=== PATIENT | male | born 1970 | race Caucasian/White ===

== ENCOUNTER → 2019-06-14 10:05 | Outpatient (POV) | payer MEDICARE, SELFPAY ==
[2019-06-14 10:17] VITALS: BP 130/84; PULSE 81; RESP 18; O2SAT 98; BMI 25.9
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
== END ==
PROVIDERS: PCP Family Medicine; Visit Provider Clinical Nurse Specialist Family Health
DX: M47.816 Spondylosis without myelopathy or radiculopathy, lumbar region (principal)
CPT/HCPCS: 99202

== ENCOUNTER 2021-08-19 19:53 | Emergency (ER) | payer MEDICARE, SELFPAY ==
[2021-08-19 20:00] VITALS: BP 116/75; PULSE 91; RESP 20; TEMP 38.7; O2SAT 98; BMI 26.6
--- NOTE | 2021-08-19 20:18 | HMH.EDUTC ---
[facility] [place] [facility] [place] Clinical Impression: Bronchitis Disposition: Home, Self-Care Condition on Discharge: Good Instructions: DI for Acute Bronchitis, DI for Fever (Symptom) -- Adult, DI for COVID-19 (Suspected or Confirmed ) Additional Instructions: ? Start antibiotic today. Be sure to complete entire prescription even if feeling better ? Monitor temp. Tylenol every 4 hours as needed and / or ibuprofen every 6 hours as needed ( As long as your primary care physician has told you that it ok to take both. For fever/aches/pains ER if no less than 101 despite Tylenol or Motrin ? Humidifier/vaporizer or hot steamy shower ? Inhaler every 4-6 hours as needed like we discussed. If unsure how to use it, ask pharmacist to demonstrate how. Should help open airways and improve cough, wheezing, and shortness of breath ? Mucinex during the day for your cough and cough suppressant only at night. Be sure to drink lots of water. Insurance may not cover a prescriptions for mucinex. Might be cheaper to get 400mg tablets and take 2 tablet in the morning, mid-day and evening with lots of water. *Promethazine DM cough syrup will cause drowsiness. Use only at night. No driving, operating machinery or caring for small children after taking it *Tessalon Perles will not cause drowsiness but use at bedtime to help stop cough so that you may get some rest. *Start steroid today. Helps with inflammation therefore, cough and wheezing. Follow directions on the package. Reviewed side effects. Patient reports taking them before. Follow up IMMEDIATELY for new or worsening of symptoms OR no noticeable improvement over the next 48-72 hours. 911 immediately for any life threatening symptoms such as chest pain or difficulty breathing Prescriptions: Benzonatate [Benzonatate 100mg cap] 100 mg PO Q8HP PRN #15 cap PRN Reason: Cough Transmission Status: Received by [id number] methylPREDNISolone [Medrol 4mg tab] 4 mg PO DIRECTED #21 tab Transmission Status: [id number] Azithromycin [Z-Brandon 250mg Tab] 250 mg PO DIRECTED #6 tab Transmission Status[facility] Ondansetron [Zofran 4mg ODT] 4 mg PO TIDP PRN #6 tab PRN Reason: Nausea Transmission Status: Received by [facility] Referrals: Provider,Referral, MD [Primary Care Provider] - As needed Forms: Work/School Release Time of Disposition: 20:43 Medical Decision Making - Elio Inquiry Pt receiving controlled substance: No Elio was queried for this patient: No Vital Signs: 08/19/21 20:00 08/19/21 20:39 Temperature 101.7 F H 101.7 F H Temperature Source Oral Pulse Rate 91 H Pulse Rate [Right Brachial] 91 H Respiratory Rate 20 20 Blood Pressure 116/75 Blood Pressure [Right Arm] 116/75 Blood Pressure Mean [Right Arm] 88 Blood Pressure Source [Right Arm] Automatic Cuff Blood Pressure Position [Right Arm] Sitting 02 Sat by Pulse Oximetry 98 Oxygen Delivery Method Room Air - Lab Data Lab results reviewed: Yes: I reviewed the patient's lab results. Lab Results 08/19/21 20:10: Influenza Type A Ag Negative, Influenza Type B Ag Negative Orders (Tests/Meds): ED MEDICATIONS Discontinued Medications Generic Name Dose Route Start Last Admin Trade Name Freq PRN Reason Stop Dose Admin Ibuprofen 800 mg 08/19/21 20:16 08/19/21 20:19 Ibuprofen 400 Mg Tablet PO 08/19/21 20:17 800 mg ONCE ONE Administration Ondansetron HCl 4 mg 08/19/21 20:31 08/19/21 20:35 Ondansetron 4mg Odt SL 08/19/21 20:32 4 mg ONCE ONE Administration ORDERS Category Date Time Status Covid-19 Nasal PCR ([facility]) Routine Lab 08/19/21 20:05 Received [facility] [place] [facility] [place] HPI - General Stated complaint: CHILLS,bland,nAUSA, BODY ACHES Time Seen by Provider: 08/19/21 20:18 Mode of Arrival: Ambulatory Source of Information: Patient Limitations: No Limitations Description of Symptoms (Recalled from Triage Doc. by RN): PATIENT C/O CHI
[2021-08-19 20:23] LABS: UTC Influenza A Antigen Negative (Negative); UTC Influenza B Antigen Negative (Negative)
[2021-08-19 20:39] VITALS: BP 116/75; PULSE 91; RESP 20; TEMP 38.7; O2SAT 98
== END 2021-08-19 20:45 | disposition home or self-care (01) ==
PROVIDERS: Emergency Provider Nurse Practitioner
DX: U07.1 COVID-19 (principal); J20.9 Acute bronchitis, unspecified; F17.210 Nicotine dependence, cigarettes, uncomplicated
CPT/HCPCS: G0463; 87804; 99202; C9803; U0003; U0005

== ENCOUNTER 2021-11-06 14:20 | Emergency (ER) | payer MEDICARE, SELFPAY ==
--- NOTE | 2021-11-06 14:20 | ECG_ITS ---
APPROVED REPORT Exam: Resting ECG HR:66 bpm ECG Measurements Heart Rate 66 AXES VT 118 P 42 QRSd 92 QRS 42 QT 356 T 40 QTc 369 Conclusion SINUS RHYTHM WITH SHORT VT INTERVAL BORDERLINE ECG UNCONFIRMED REPORT Electronically signed by : Mj Stuart MD 11/08/2021 14:52:57
[2021-11-06 14:22] VITALS: BP 132/108; PULSE 65; RESP 16; TEMP 36.9; O2SAT 96; BMI 25.5
--- NOTE | 2021-11-06 14:24 | XR_ITS ---
FINAL REPORT CLINICAL HISTORY: chest pain FINDINGS: SINGLE VIEW CHEST. The heart is normal in size. The mediastinum is unremarkable. The lungs are clear. There is no pneumothorax. IMPRESSION: No acute process. Reviewed, Interpreted and Dictated by Lyndon Brand III, MD Transcribed by Deana Ye Authenticated by Lyndon Brand III, MD on 11/06/2021 03:28:35 PM [facility]
[2021-11-06 14:47] LABS: Basophils # 0.1 K/mm3 (0-0.2); Basophils % 1.3 % (0.1-2.0); Eosinophils # 0.5 K/mm3 (0.0-0.4); Eosinophils % 5.2 % (0.1-12.0); Hematocrit 45.6 % (42.0-52.0); Hemoglobin 15.9 g/dL (14.1-18.0); Lymphocytes # 2.3 K/mm3 (0.7-4.5); Lymphocytes % 26.6 % (10-50); Mean Corpuscular HGB Conc 34.8 g/dL (31.8-35.4); Mean Corpuscular Hemoglobin 32.7 pg (27.0-31.2); Mean Platelet Volume 9.2 fl (7.4-10.4); Monocytes # 0.5 K/mm3 (0.1-1.0); Monocytes % 6.1 % (1.7-9.3); Neutrophils # 5.3 K/mm3 (1.8-7.8); Neutrophils % 60.8 % (37.0-80.0); Platelet Count 261 K/mm3 (142-424); Red Blood Count 4.86 M/mm3 (4.60-6.20); White Blood Count 8.8 K/mm3 (4.8-10.8)
[2021-11-06 14:49] LABS: Chloride 104 mmol/L (98-107); Sodium 138 mmol/L (136-145)
[2021-11-06 14:50] LABS: Potassium 4.4 mmoL/L (3.5-5.1)
[2021-11-06 14:52] LABS: Blood Urea Nitrogen 10 mg/dl (9-20); Creatinine Clearance Estimated 100 mL/min (50-200); Estimated Glomerular Filt Rate 89 ml/min (>60); GFR (African American) 107 ML/MIN (>60)
[2021-11-06 14:53] LABS: Anion Gap 12.4 mEq/L (5-15); Calcium 8.5 mg/dl (8.4-10.2); Carbon Dioxide 26 mmol/L (22.0-30.0); Glucose 109 mg/dl (74-100)
[2021-11-06 15:00] VITALS: BP 135/77; PULSE 58; RESP 16; O2SAT 96
[2021-11-06 15:07] LABS: Troponin I < 0.01 ng/ml (0.00-0.034)
--- NOTE | 2021-11-06 15:13 | HMH.EDCP ---
ED Disposition Clinical Impression: Chest pain Disposition: Home, Self-Care Condition on Discharge: Good Instructions: DI for Atypical Chest Pain Additional Instructions: Please follow up with your primary care physician in 2-3 days for further management. You have also been referred to cardiology for outpatient management., Please return for difficulty breathing, chest pain, symptoms that reoccur or any other concerns. Referrals: Provider,Referral, [Primary Care Provider] - Rima Barajas APRN [Nurse Practitioner] - - Critical Care Critical Care Time: No Attestation: On 11/06/21, the high probability of a clinically significant, sudden or life threatening deterioration of the following system(s) required my full and direct attention, intervention and personal management. The time I documented below is in addition to time spent performing reported procedures but includes the following listed in this critical care notation. Medical Decision Making - Medical Records Medical records reviewed: Yes: I reviewed the patient's medical records. - Elio Inquiry Pt receiving controlled substance: No Vital Signs: 11/06/21 14:22 11/06/21 15:00 11/06/21 15:30 Temperature 98.4 F Temperature Source Oral Pulse Rate 58 L 60 Pulse Rate [Radial] 65 Respiratory Rate 16 16 16 Blood Pressure 135/77 113/70 Blood Pressure [Right Arm] 132/108 H Blood Pressure Mean 102 91 Blood Pressure Mean [Right Arm] 116 Blood Pressure Position Blood Pressure Position [Right Arm] Sitting 02 Sat by Pulse Oximetry 96 96 95 Oxygen Delivery Method Room Air 11/06/21 17:09 Temperature 98 F Temperature Source Oral Pulse Rate 68 Pulse Rate [Radial] Respiratory Rate 16 Blood Pressure 147/74 H Blood Pressure [Right Arm] Blood Pressure Mean Blood Pressure Mean [Right Arm] Blood Pressure Position Sitting Blood Pressure Position [Right Arm] 02 Sat by Pulse Oximetry Oxygen Delivery Method Room Air - Lab Data Lab results reviewed: Yes: I reviewed the patient's lab results. Lab Results 11/06/21 14:25: WBC 8.8, RBC 4.86, Hgb 15.9, Hct 45.6, MCV 94.0, MCH 32.7 H, MCHC 34.8, RDW 14.0, Plt Count 261, MPV 9.2, Neut % (Auto) 60.8, Lymph % (Auto) 26.6, Frontier % (Auto) 6.1, Eos % (Auto) 5.2, Baso % (Auto) 1.3, Neut # (Auto) 5.3, Lymph # (Auto) 2.3, Frontier # (Auto) 0.5, Eos # (Auto) 0.5 H, Baso # (Auto) 0.1 11/06/21 14:25: Sodium 138, Potassium 4.4, Chloride 104, Carbon Dioxide 26, Anion Gap 12.4, BUN 10, Creatinine 0.90, Estimated Creat Clear 100, Estimated GFR 89, Est GFR ( Amer) 107, Glucose 109 H, Calcium 8.5, Troponin I < 0.01 Result diagrams: 11/06/21 14:25 11/06/21 14:25 Orders (Tests/Meds): ORDERS Category Date Time Status Troponin I Q3H Lab 11/06/21 17:30 Ordered Medical Decision Narrative: Mr. Grayson is a 51 yo male w/ no significant PMH who presents to the ED for chest pain for 1 month, which is currently resolved. Patient is afebrile and hemodynamically stable on arrival, non toxic appearing. Physical exam no focal neurological deficits on exam. No sensory or motor changes currently. Low suspicion for DVT/PE given current clinical picture will not investigate further. Well PE score low risk 0. Bedside ECG shows normal sinus rhythm no evidence of acute ischemic changes. Basic labs, Trop, Bedside CXR are obtained for further evaluation results are non actionable. Patient is provided referral to cardiology given ongoing symptoms. Patient discharged in stable condition and informed to return if symptoms reoccur, worsen, difficulty breathing or any other concerns. Chest Pain HPI - General Chief Complaint: Chest Pain Stated Complaint: chest pain Time Seen by Provider: 11/06/21 14:30 Mode of Arrival: Ambulatory Source of Information: Patient Limitations: No Limitations Description of Symptoms (Recalled from ER Triage Doc. by RN): to ed per pvt car with c/o intermittent, sharp, pressure type chest chata
[2021-11-06 15:30] VITALS: BP 113/70; PULSE 60; RESP 16; O2SAT 95
[2021-11-06 17:09] VITALS: BP 147/74; PULSE 68; RESP 16; TEMP 36.6; O2SAT 98
== END 2021-11-06 17:10 | disposition home or self-care (01) ==
PROVIDERS: Emergency Provider Student in an Organized Health Care Education/Training Program
DX: R07.2 Precordial pain (principal); R20.2 Paresthesia of skin; F17.210 Nicotine dependence, cigarettes, uncomplicated; Z79.52 Long term (current) use of systemic steroids; Z79.899 Other long term (current) drug therapy
CPT/HCPCS: 71045; 80048; 84484; 85025; 93005; 99285

== ENCOUNTER 2022-04-03 17:48 | Emergency (ER) | payer MEDICARE, SELFPAY ==
--- NOTE | 2022-04-03 17:46 | ECG_ITS ---
APPROVED REPORT Exam: Resting ECG HR:75 bpm ECG Measurements Heart Rate 75 AXES IL 117 P 40 QRSd 93 QRS 29 QT 370 T 49 QTc 400 Conclusion SINUS RHYTHM WITH SHORT IL INTERVAL BORDERLINE ECG UNCONFIRMED REPORT Electronically signed by : Mj Stuart MD 04/04/2022 17:09:22
[2022-04-03 17:48] VITALS: BP 160/92; PULSE 72; RESP 16; TEMP 37.1; O2SAT 98; BMI 26.6
[2022-04-03 17:55] VITALS: PULSE 70
--- NOTE | 2022-04-03 17:58 | XR_ITS ---
PROCEDURE INFORMATION: Exam: XR Chest Exam date and time: 04/03/2022 6:17 PM Age: 51 years old Clinical indication: Pain; Chest pressure; Additional info: Chest pain TECHNIQUE: Imaging protocol: Radiologic exam of the chest. Views: 1 view. Portable AP exam 6:18 p.m. COMPARISON: CR XR CHEST PORTABLE 11/06/2021 2:28 PM FINDINGS: Tubes, catheters and devices: Overlying director of cardiac cath lab electrodes. Lungs: No acute pulmonary findings. No pulmonary consolidation. Lung volumes within normal limits. Pulmonary vessels do not appear congested. Pleural spaces: Unremarkable. No significant pleural effusion. No pneumothorax. Heart/Mediastinum: Unremarkable. No cardiomegaly. Bones/joints: There is no evidence of acute fracture. Other findings: Overlying external artifacts from clothing and a necklace. IMPRESSION: No acute findings.
[2022-04-03 18:00] VITALS: BP 132/70; PULSE 73; RESP 18; O2SAT 100
[2022-04-03 18:10] LABS: Alanine Aminotransferase 35 U/L (12-78); Albumin Level 4.6 g/dl (3.5-5.0); Alkaline Phosphatase 84 U/L (38-126); Anion Gap 12.8 mEq/L (5-15); Aspartate Amino Transferase 49 U/L (17-59); Bilirubin,Direct 0.4 mg/dl (0.0-0.4); Bilirubin,Indirect 0.4 mg/dL (0.0-0.9); Bilirubin,Total 0.8 mg/dl (0.2-1.3); Bilirubin,Unconjugated 0.4 mg/dL (0.0-1.1); Blood Urea Nitrogen 9 mg/dl (9-20); Carbon Dioxide 33 mmol/L (22.0-30.0); Chloride 100 mmol/L (98-107); Creatinine Clearance Estimated 94 mL/min (50-200); Estimated Glomerular Filt Rate 78 ml/min (>60); GFR (African American) 95 ML/MIN (>60); Glucose 68 mg/dl (74-100); Lipase 175 U/L (23-300); Potassium 3.8 mmoL/L (3.5-5.1); Sodium 142 mmol/L (136-145); Total Protein,Serum 7.7 g/dl (6.3-8.2)
[2022-04-03 18:24] LABS: Troponin I < 0.01 ng/ml (0.00-0.034)
[2022-04-03 18:30] VITALS: BP 133/72; PULSE 58; RESP 18; O2SAT 98
[2022-04-03 18:34] LABS: Basophils # 0.1 K/mm3 (0-0.2); Basophils % 1.5 % (0.1-2.0); Eosinophils # 0.7 K/mm3 (0.0-0.4); Eosinophils % 7.4 % (0.1-12.0); Hematocrit 44.9 % (42.0-52.0); Hemoglobin 14.4 g/dL (14.1-18.0); Lymphocytes # 2.6 K/mm3 (0.7-4.5); Lymphocytes % 29.5 % (10-50); Mean Corpuscular HGB Conc 32.2 g/dL (31.8-35.4); Mean Corpuscular Volume 96.4 fl (80-94); Mean Platelet Volume 9.5 fl (7.4-10.4); Monocytes # 0.5 K/mm3 (0.1-1.0); Monocytes % 5.6 % (1.7-9.3); Neutrophils % 56.1 % (37.0-80.0); Platelet Count 239 K/mm3 (142-424); Red Blood Count 4.65 M/mm3 (4.60-6.20); Red Cell Distribution Width 13.9 % (11.5-17.5)
--- NOTE | 2022-04-03 18:43 | HMH.EDGENADL ---
Discharge Plan Disposition Patient Disposition: Home, Self-Care Condition: Good Prescriptions Prescriptions: No Action azithromycin 250 MG tablet 250 mg PO DIRECTED Qty: 6 0RF Rx Instructions: Take two (2) tablets on day #1, then one (1) tablet day #2 thru #5 methylprednisolone 4 MG tablet 4 mg PO DIRECTED Qty: 21 0RF Rx Instructions: Take as directed on package instructions benzonatate 100 MG capsule 100 mg PO Q8HP PRN (Reason: Cough) Qty: 15 0RF ondansetron 4 MG tablet,disintegrating 4 mg PO TIDP PRN (Reason: Nausea) Qty: 6 0RF Activity Restrictions/Add. Instructions Additional Instructions/Restrictions: Follow-up with your primary care provider regarding this visit to the emergency department as needed. Your work-up today did not demonstrate any findings requiring medical or surgical intervention at this time. If you have any other concerning signs or symptoms, follow-up with your primer inserting machine adjuster, primary care provider, or return to the emergency department or urgent care center for further evaluation. Take Tylenol and ibuprofen rotating every 6 hours with food and water for the next 4 days for symptomatic management. Clinical Impressions Clinical Impression: Costochondritis Discharge ED Provider: Tao Padilla General Adult HPI General Chief complaint: Chest Pain Stated complaint: chest pain Time Seen by Provider: 04/03/22 18:00 Mode of Arrival: Ambulatory Source of Information: Patient Limitations: No Limitations Description of Symptoms (Recalled from ER Triage Doc. by RN): to ed per pvt car with c/o sob, chest pain x several weeks pt states he had a stress test at [facility] last week with negative results. pt states last night he felt like he couldn't get enough air in due to congestion. c/o lt side chest pain can reproduce with palp. pt denies any nausea, vomiting, diaphoresis. History of Present Illness HPI narrative: This is a 51-year-old male with no past medical history presenting with chest pain. Chest pain began 3 weeks ago. Patient has since been to primary care without work-up demonstrating any acute cause. He has also had a full stress test at outside hospital by cardiology demonstrating no acute coronary disease. Chest pain is left of sternum, made worse by pressure. Not exertional, not associated nausea, vomiting, diaphoresis, or any other concerning symptoms. Related Data Previous Rx's Medication Instructions Recorded azithromycin 250 mg tablet 250 mg PO DIRECTED #6 tabs 08/19/21 benzonatate 100 mg capsule 100 mg PO Q8HP PRN Cough #15 caps 08/19/21 methylprednisolone 4 mg tablet 4 mg PO DIRECTED #21 tabs 08/19/21 ondansetron 4 mg disintegrating 4 mg PO TIDP PRN Nausea #6 tabs 08/19/21 tablet Allergies Allergy/AdvReac Type Severity Reaction Status Date / Time No Known Allergies Allergy Verified 08/06/19 21:11 [facility] Social History Smoking Status: Current every day smoker tobacco type: cigarettes packs per day: 1 alcohol intake: never current occupational status: employed Travel in the last 8 weeks: None housing: house ROS Obtained: Yes All systems reviewed & no additional complaints except as documented Physical Exam General General appearance: alert and in no apparent distress Head Head exam: atraumatic, normocephalic and normal inspection Eye Eye exam: Present normal appearance, PERRL and EOMI ENT ENT exam: Present normal exam, normal oropharynx, mucous membranes moist, TM's normal bilaterally and normal external ear exam Neck Neck exam: Present normal inspection, full ROM and trachea midline; Absent meningismus or lymphadenopathy Chest Chest inspection: Present normal inspection, symmetric chest wall rise and tenderness (Tenderness to palpation left side of chest sternum) Respiratory Respiratory exam: Present normal lung sounds bilaterally; Absent respiratory distress Cardiovascular Cardiovascular exam: Present
[2022-04-03 19:36] VITALS: BP 124/74; PULSE 78; RESP 16; TEMP 36.6; O2SAT 98
== END 2022-04-03 19:38 | disposition home or self-care (01) ==
PROVIDERS: Emergency Provider Emergency Medicine; PCP Family Medicine
DX: M94.0 Chondrocostal junction syndrome [Tietze] (principal)
CPT/HCPCS: 71045; 80048; 80076; 83690; 84484; 85025; 93005; 96374; 99284

== ENCOUNTER 2023-09-02 04:47 | Emergency (ER) | payer MEDICARE, SELFPAY ==
[2023-09-02 04:48] VITALS: BP 148/97; PULSE 74; RESP 18; TEMP 36.7; O2SAT 100; BMI 26.6
--- NOTE | 2023-09-02 05:13 | HMH.EDGENADL ---
Discharge Plan Disposition Patient Disposition: Home, Self-Care Condition: Good Chief Complaint: PAIN Prescriptions Prescriptions: No Action azithromycin 250 MG tablet 250 mg PO DIRECTED Qty: 6 0RF Rx Instructions: Take two (2) tablets on day #1, then one (1) tablet day #2 thru #5 methylprednisolone 4 MG tablet 4 mg PO DIRECTED Qty: 21 0RF Rx Instructions: Take as directed on package instructions benzonatate 100 MG capsule 100 mg PO Q8HP PRN (Reason: Cough) Qty: 15 0RF ondansetron 4 MG tablet,disintegrating 4 mg PO TIDP PRN (Reason: Nausea) Qty: 6 0RF Referrals Follow up/Referrals: Uli Villanueva [Primary Care Provider] - See instructions Activity Restrictions/Add. Instructions Additional Instructions/Restrictions: You were evaluated in the ER for body aches. Continue taking Tylenol and ibuprofen if needed for pain. Do not exceed recommended doses on the bottles. Drink plenty of water. Find the results of the viral testing in the patient portal. Make an appointment with your primary care physician for reevaluation in 2 to 3 days. Return to the ER with any new, worsening, or otherwise concerning symptoms. Clinical Impressions Clinical Impression: Myalgia Discharge ED Provider: Mamadou Torre Adult HPI General Chief complaint: PAIN Stated complaint: pain, numbness in hand Time Seen by Provider: 09/02/23 05:06 Mode of Arrival: Ambulatory Source of Information: Patient Limitations: No Limitations Description of Symptoms (Recalled from ER Triage Doc. by RN): Patient reports generalized body aches that started thursday night that he rates at a 10/10 pain. Patient states that he has no cough, fever, or other symptoms. He also reports that he has had ongoing left arm numbness that has been intermittent for the last 3 months that he's had xrays taken for recently. History of Present Illness HPI narrative: 52-year-old male who was recently seen in our ER for costochondritis presents to the ER for generalized body aches. He describes aching in the muscles of the arms and legs. He denies fever, cough, congestion, sore throat, nausea, vomiting, abdominal pain, diarrhea, or any other associated symptoms. He does state he has had left posterior forearm numbness intermittently for the last 3 or more months and has already had workup for this including recent x-rays. He also states he takes a sleeping pill from his primary care physician but it is not helping him sleep the last night with his pain. Patient states he took Aleve around 9:30 PM without significant improvement of symptoms. He also tried Tylenol earlier today. He denies any recent injuries or trauma. No swelling, weakness, he denies numbness at this time, no other deficits. Related Data Previous Rx's Medication Instructions Recorded azithromycin 250 mg tablet 250 mg PO DIRECTED #6 tabs 08/19/21 benzonatate 100 mg capsule 100 mg PO Q8HP PRN Cough #15 caps 08/19/21 methylprednisolone 4 mg tablet 4 mg PO DIRECTED #21 tabs 08/19/21 ondansetron 4 mg disintegrating 4 mg PO TIDP PRN Nausea #6 tabs 08/19/21 tablet Allergies Allergy/AdvReac Type Severity Reaction Status Date / Time No Known Allergies Allergy Verified 08/06/19 21:11 [facility] Disclaimer: The information contained in this section may have been updated after the patient was seen, as this information can be updated by other users. Social History Smoking Status: Current every day smoker tobacco type: cigarettes packs per day: 1 alcohol intake: never current occupational status: employed Travel in the last 8 weeks: None housing: house ROS Obtained: Yes All systems reviewed & no additional complaints except as documented Constitutional Constitutional: Denies chills, Denies fever(s), Denies headache(s) and Denies weakness Eyes Eyes: Denies change in vision ENT Ears, Nose, Mouth, and Throat: Denies dizziness, Denies headache(s), Denies nasal congestion and Denies sore throat Cardiovascular Cardiovascular: Denies chest pain, Denies dyspnea and Denies leg edema Respiratory Respiratory: Denies cough and Denies dyspnea Gastrointestinal Gastrointestingal: Denies constipation, diarrhea, nausea or vomiting Genitourinary Male Genitourinary: Denies difficulty urinating Musculoskeletal Musculoskeletal: Denies arthralgias, Reports myalgias, Denies numbness (Not currently) and Denies tingling Integumentary/Breasts Skin/Breast: Denies change in pigmentation Neurologic Neurologic: Denies dizziness, Denies headache(s), Denies numbness (Not currently), Denies tingling and Denies weakness Physical Exam General General appearance: alert and in no apparent distress Head Head exam: atraumatic and normocephalic Eye Eye exam: Present PERRL and EOMI ENT ENT exam: Present mucous membranes moist Neck Neck exam: Present normal inspection and full ROM Chest Chest inspection: Present symmetric chest wall rise Respiratory Respiratory exam: Absent respiratory distress or stridor Cardiovascular Cardiovascular exam: Present regular rate and normal rhythm Abdominal Exam Abdominal exam: Present soft; Absent distention or tenderness Extremities Exam Extremities exam: Present full ROM and tenderness (Mild diffuse tenderness of the muscles of his arms and legs without bruising, swelling, deformity, or focal tenderness, no signs of trauma); Absent edema Neurological Exam Neurological exam: Present alert, oriented X3, CN II-XII intact and normal gait; Absent motor sensory deficit Psychiatric Psychiatric exam: Present normal affect and normal mood Skin Skin exam: Present warm and dry Medical Decision Making Elio Inquiry Pt receiving controlled substance: No Vital Signs: 09/02/23 04:48 Temperature 98.0 F Temperature Source Oral Pulse Rate [Left Radial] 74 Respiratory Rate 18 Blood Pressure [Right Arm] 148/97 H Blood Pressure Mean [Right Arm] 114 Blood Pressure Source [Right Arm] Automatic Cuff Blood Pressure Position [Right Arm] Sitting 02 Sat by Pulse Oximetry 100 Oxygen Delivery Method Room Air Orders (Tests/Meds): ORDERS Category Date Time Status Rapid PCR Covid and Flu A/B Stat Lab 09/02/23 05:12 Ordered Medical Decision Narrative: In summary this 52-year-old male presents to the ER with concerns of diffuse bodyaches. On initial evaluation patient is hemodynamically stable, afebrile, physical exam notable for mild tenderness of the arms and legs with no findings of trauma. Remainder of exam is benign. Cardiopulmonary exam reassuring. I have no suspicion for acute neurologic abnormality at this time regarding patient's intermittent left arm numbness as he does not have this symptom at this time, it has been ongoing for multiple months, and he already has follow-up for it. Differential diagnosis includes but is not limited to myalgias, viral syndrome, I considered rhabdomyolysis however patient has no history of injury, muscle spasm, or other risk factors. I considered electrolyte abnormality however patient has not had any volume losses that would be causing this. I ordered viral swab for evaluation. Patient is receiving IM Toradol for symptomatic management. Patient is appropriate for discharge at this time. He has close follow-up with his primary care physician and is comfortable with this plan. Patient was given instructions on symptomatic management, follow up instructions, and return precautions for the emergency department. Patient indicated understanding and was discharged in stable condition. Critical Care Critical Care Time Critical Care Time: No
[2023-09-02] MEDS: KETOROLAC 30MG/ML VIAL 15 MG IM (05:16)
--- NOTE | 2023-09-02 05:17 | PC.NURSE ---
swab collected and sent to lab
[2023-09-02 05:20] LABS: Coronavirus 19, PCR Not Detected (NotDetected); Influenza A, PCR Not Detected (NotDetected); Influenza B, PCR Not Detected (NotDetected)
[2023-09-02 05:32] VITALS: BP 148/97; PULSE 74; RESP 18; TEMP 36.7; O2SAT 100
== END 2023-09-02 05:33 | disposition home or self-care (01) ==
PROVIDERS: Emergency Provider Emergency Medicine; PCP Family Medicine
DX: R20.0 Anesthesia of skin (principal); F17.210 Nicotine dependence, cigarettes, uncomplicated; M79.10 Myalgia, unspecified site
CPT/HCPCS: 87636; 99283

== ENCOUNTER 2023-09-03 08:23 | Emergency (ER) | payer MEDICARE, SELFPAY ==
[2023-09-03 08:24] VITALS: BP 142/84; PULSE 98; RESP 16; TEMP 36.7; O2SAT 100; BMI 26.6
[2023-09-03] MEDS: ACETAMINOPHEN 1,000MG/100ML VIAL 1000 MG IV (08:41)
[2023-09-03] MEDS: KETOROLAC 30MG/ML VIAL 15 MG IV (08:41)
[2023-09-03] MEDS: LACTATED RINGERS 1000ML 1,000 ML 999 ML IV (08:41)
--- NOTE | 2023-09-03 08:42 | ED_ITS ---
Discharge Plan Disposition Patient Disposition: Home, Self-Care Condition: Good Prescriptions Prescriptions: New prednisone 10 mg tablet 10 mg PO DIRECTED Qty: 30 0RF Rx Instructions: see taper instructions Take 40 mg daily for 4 days, THEN take 20 mg daily for 4 days, THEN take 10 mg daily for 4 days, THEN take 10 mg every other day for 2 doses. No Action azithromycin 250 MG tablet 250 mg PO DIRECTED Qty: 6 0RF Rx Instructions: Take two (2) tablets on day #1, then one (1) tablet day #2 thru #5 methylprednisolone 4 MG tablet 4 mg PO DIRECTED Qty: 21 0RF Rx Instructions: Take as directed on package instructions benzonatate 100 MG capsule 100 mg PO Q8HP PRN (Reason: Cough) Qty: 15 0RF ondansetron 4 MG tablet,disintegrating 4 mg PO TIDP PRN (Reason: Nausea) Qty: 6 0RF Referrals Follow up/Referrals: Uli Villanueva [Primary Care Provider] - See instructions Activity Restrictions/Add. Instructions Additional Instructions/Restrictions: You were evaluated in the emergency department today. At this time, it is felt that your symptoms are a result of steroid withdrawals given that you stopped taking steroids abruptly on Thursday. 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 It is important that you take the medication exactly as prescribed and do not miss any doses. Do not stop taking this medication abruptly. Please follow-up closely with your primary care neyda bledsoe over the next 3 days for reassessment. I also recommend follow-up with your primary care provider for management of your sleep disturbance. You may try melatonin [id number] in the meantime. It may take several days for this to work. Try taking your steroid first thing in the morning. Do not take it at night, as it can cause you significant difficulty sleeping. Make sure that you are staying orally hydrated. Return to the emergency department for any new or worsening symptoms. Clinical Impressions Clinical Impression: Steroid withdrawal syndrome, Insomnia, Myalgia Instructions Patient Instructions: DI for Acute Pain -- Adult, DI for Insomnia Discharge ED Provider: Paula Suero General Adult HPI General Chief complaint: PAIN Stated complaint: body aches Time Seen by Provider: 09/03/23 08:26 Mode of Arrival: Ambulatory Source of Information: Patient Limitations: No Limitations Description of Symptoms (Recalled from ER Triage Doc. by RN): Patient states he was seen yesterday and tested for COVID and flu that were both negative. Patient complains of body aches. Denies headache, fever, congestion or cough. History of Present Illness HPI narrative: This patient is a 52-year-old male with a history of degenerative disc disease presenting to the emergency department with concern for generalized bodyaches. He states that he hurts all the way from his neck to his toes. He states that this started several days ago. He was evaluated here yesterday for this, and COVID and flu were negative. He does note that he was previously on medic ations, 1 anti-inflammatory for his neck and 1 sleeping medication, but he stopped taking these on Thursday because they were not helping. He is unsure what they were. He denies any fevers, chills, sore throat, cough, congestion, traumatic injuries, limb/muscle swelling, or other concerns. Related Data Previous Rx's Medication Instructions Recorded azithromycin 250 mg tablet 250 mg PO DIRECTED #6 tabs 08/19/21 benzonatate 100 mg capsule 100 mg PO Q8HP PRN Cough #15 caps 08/19/21 methylprednisolone 4 mg tablet 4 mg PO DIRECTED #21 tabs 08/19/21 ondansetron 4 mg disintegrating 4 mg PO TIDP PRN Nausea #6 tabs 08/19/21 tablet prednisone 10 mg tablet 10 mg PO DIRECTED #30 tabs 09/03/23 Allergies Allergy/AdvReac Type Severity Reaction Status Date / Time No Known Allergies Allergy Verified 08/06/19 21:11 [facility] Disclaimer: The information contained in this section may have been updated after the patient was seen, as this information can be updated by other users. Social History Smoking Status: Current every day smoker tobacco type: cigarettes packs per day: 1 alcohol intake: never current occupational status: employed Travel in the last 8 weeks: None housing: house ROS Obtained: Yes All systems reviewed & no additional complaints except as documented Physical Exam General General appearance: alert and in no apparent distress Head Head exam: atraumatic and normocephalic Eye Eye exam: Present normal appearance, PERRL and EOMI ENT ENT exam: Present normal exam, normal oropharynx, mucous membranes moist and normal external ear exam Neck Neck exam: Present normal inspection, full ROM and trachea midline; Absent tenderness Chest Chest inspection: Present normal inspection and symmetric chest wall rise; Absent tenderness Respiratory Respiratory exam: Present normal lung sounds bilaterally; Absent respiratory distress, wheezes, stridor or accessory muscle use Cardiovascular Cardiovascular exam: Present regular rate and normal rhythm Abdominal Exam Abdominal exam: Present soft; Absent distention, tenderness or guarding Extremities Exam Extremities exam: Present normal inspection, full ROM and normal capillary refill; Absent tenderness or edema Back Exam Back exam: Present normal inspection and full ROM; Absent tenderness Neurological Exam Neurological exam: Present alert, oriented X3, CN II-XII intact and normal gait; Absent motor sensory deficit Psychiatric Psychiatric exam: Present normal affect and normal mood Skin Skin exam: Present warm and dry Medical Decision Making Medical Records Medical records reviewed: Yes I reviewed the patient's medical records. Elio Inquiry Pt receiving controlled substance: No Vital Signs: 09/03/23 08:24 Temperature 98.0 F Temperature Source Oral Pulse Rate [Radial] 98 H Respiratory Rate 16 Blood Pressure [Right Arm] 142/84 H Blood Pressure Mean [Right Arm] 103 Blood Pressure Source [Right Arm] Automatic Cuff Blood Pressure Position [Right Arm] Sitting 02 Sat by Pulse Oximetry 100 Oxygen Delivery Method Room Air Lab Data Lab results reviewed: Yes I reviewed the patient's lab results. Lab Results 09/03/23 08:37: WBC 11.2 H, RBC 4.87, Hgb 15.7, Hct 45.1, MCV 92.5, MCH 32.3 H, MCHC 34.9, RDW 14.0, Plt Count 226, MPV 9.0, Neut % (Auto) 85.9 H, Lymph % (Auto) 7.4 L, Edmunds % (Auto) 3.0, Eos % (Auto) 3.4, Baso % (Auto) 0.4, Neut # (Auto) 9.6 H, Lymph # (Auto) 0.8, Edmunds # (Auto) 0.3, Eos # (Auto) 0.4, Baso # (Auto) 0.0, Sodium 138, Potassium 4.1, Chloride 105, Carbon Dioxide 26, Anion Gap 11.1, BUN 10, Creatinine 0.90, Estimated Creat Clear 104, Estimated GFR 88, Est GFR ( Amer) 107, Glucose 144 H, Calcium 9.4, Total Bilirubin 0.5, AST 40, ALT 42, Alkaline Phosphatase 87, Total Creatine Kinase 205 H, Total Protein 7.3, Albumin 4.4, Globulin 2.9, Albumin/Globulin Ratio 1.5 09/03/23 08:37 09/03/23 08:37 Orders (Tests/Meds): ED MEDICATIONS Discontinued Medications Generic Name Dose Route Start Last Admin Trade Name Anupama PRN Reason Stop Dose Admin Acetaminophen 1,000 mg 09/03/23 08:26 09/03/23 08:41 Acetaminophen 1,000mg/100ml Vial IV 09/03/23 08:27 1,000 mg ONCE ONE Administration Lactated Ringer's 1,000 mls @ 999 mls/hr 09/03/23 08:26 09/03/23 08:41 Lactated Ringer's 1000 Ml Bag IV 09/03/23 09:26 999 mls/hr .Q1H1M ONE Administration Ketorolac Tromethamine 15 mg 09/03/23 08:26 09/03/23 08:41 Ketorolac 30mg/Ml Vial IV 09/03/23 08:27 15 mg ONCE ONE Administration ORDERS Category Date Time Status Complete Blood Count Auto Diff Stat Lab 09/03/23 08:37 Results Comprehensive Metabolic Panel Stat Lab 09/03/23 08:37 Completed Creatine Kinase Stat Lab 09/03/23 08:37 Completed Medical Decision Narrative: In summary, this patient is a 52-year-old male presenting to the Emergency Department for evaluation of generalized bodyaches. Differential diagnoses considered include but are not limited to viral syndrome, rhabdomyolysis, compartment syndrome, arthritis, hypokalemia, steroid withdrawal. Ruling out the most morbid conditions drove assessment. On exam, the patient is well-appearing. He has no physical exam findings concerning for compartment syndrome. No recent traumatic injuries. Workup included CBC, CMP, CK. He was given a bolus of IV fluids as well as IV Toradol and Tylenol for symptomatic improvement. Labs demonstrated very mildly elevated CK, however the patient has normal kidney function, normal urine output, and no evidence of compartment syndrome. Given this, I do not feel this is reason for admission. I did have further discussion with him regarding his steroid use, and he states that he was on it for several weeks and stopped abruptly on Thursday without a taper. Given this, feel he likely has steroid withdrawal as cause of his myalgias and joint pain. He does not have any evidence of adrenal insufficiency based on labs. Vitals are reassuring. Given this, I feel that he is appropriate for discharge with a steroid taper. He was prescribed a prednisone taper and I stressed the importance of compliance with this to him. He also expresses that he has had issues with sleeping, for which I advised that he follow-up closely with his primary care provider. I also encouraged sleep hygiene. Patient was felt to be appropriate for discharge at this time. He was given very strict return precautions, instructions for close a patient follow-up, and a prescription for prednisone taper. He was discharged in stable condition after all questions were answered. Critical Care Critical Care Time Critical Care Time: No
[2023-09-03 08:56] LABS: Basophils % 0.4 % (0.1-2.0); Eosinophils # 0.4 K/mm3 (0.0-0.4); Eosinophils % 3.4 % (0.1-12.0); Hematocrit 45.1 % (42.0-52.0); Hemoglobin 15.7 g/dL (14.1-18.0); Lymphocytes # 0.8 K/mm3 (0.7-4.5); Lymphocytes % 7.4 % (10-50); Mean Corpuscular HGB Conc 34.9 g/dL (31.8-35.4); Mean Corpuscular Hemoglobin 32.3 pg (27.0-31.2); Mean Corpuscular Volume 92.5 fl (80-94); Monocytes # 0.3 K/mm3 (0.1-1.0); Neutrophils # 9.6 K/mm3 (1.8-7.8); Neutrophils % 85.9 % (37.0-80.0); Platelet Count 226 K/mm3 (142-424); Red Blood Count 4.87 M/mm3 (4.60-6.20); White Blood Count 11.2 K/mm3 (4.8-10.8)
[2023-09-03 09:04] LABS: Chloride 105 mmol/L (98-107); Potassium 4.1 mmoL/L (3.5-5.1); Sodium 138 mmol/L (136-145)
[2023-09-03 09:06] LABS: Alanine Aminotransferase 42 U/L (12-78); Alkaline Phosphatase 87 U/L (38-126); Anion Gap 11.1 mEq/L (5-15); Aspartate Amino Transferase 40 U/L (17-59); Bilirubin,Total 0.5 mg/dl (0.2-1.3); Blood Urea Nitrogen 10 mg/dl (9-20); Carbon Dioxide 26 mmol/L (22.0-30.0); Creatine Kinase 205 U/L (55-170); Creatinine Clearance Estimated 104 mL/min (50-200); Estimated Glomerular Filt Rate 88 ml/min (>60); GFR (African American) 107 ML/MIN (>60)
[2023-09-03 09:07] LABS: Albumin Level 4.4 g/dl (3.5-5.0); Albumin/Globulin Ratio 1.5 (1.1-1.8); Calcium 9.4 mg/dl (8.4-10.2); Globulin 2.9 g/dL (1.3-3.2); Glucose 144 mg/dl (74-100); Total Protein,Serum 7.3 g/dl (6.3-8.2)
[2023-09-03 09:09] LABS: MANUAL DIFFERENTIAL MANUAL DIFFERENTIAL (MANUAL DIFF)
[2023-09-03 10:00] VITALS: BP 127/81; PULSE 88; RESP 18; TEMP 36.8; O2SAT 100
[2023-09-03 10:36] LABS: Eosinophils % 3 % (0-3); Lymphocytes % 8 % (10-50); Monocytes % 4 % (2-9); Neutrophils % 85 % (42-76); Total Cells Counted 100
[2023-09-03 10:37] LABS: Platelet Estimate Normal; RBC Morphology Normal
== END 2023-09-03 10:00 | disposition home or self-care (01) ==
PROVIDERS: Emergency Provider Emergency Medicine; PCP Family Medicine
DX: G47.00 Insomnia, unspecified (principal); F19.939 Other psychoactive substance use, unspecified with withdrawal, unspecified; M79.10 Myalgia, unspecified site; F17.210 Nicotine dependence, cigarettes, uncomplicated
CPT/HCPCS: 80053; 82550; 85007; 85025; 96361; 96374; 96375; 99284; J0131

== ENCOUNTER 2024-03-10 09:23 | Emergency (ER) | payer MEDICARE, SELFPAY ==
[2024-03-10] VITALS (7 sets, daily range): BP systolic 128–162; BP diastolic 78–90; PULSE 61–81; RESP 17–18; TEMP 37–37.1; O2SAT 96–99; BMI 26.9
--- NOTE | 2024-03-10 10:08 | CT_ITS ---
FINAL REPORT TECHNIQUE: After the administration of IV contrast, axial images through the orbits were obtained by computed tomography. Reconstructed images were obtained and reviewed. This study was performed with techniques to keep radiation doses as low as reasonably achievable (ALARA). Individualized dose reduction techniques using automated exposure control or adjustment of mA and/or kV according to the patient's size were employed. CLINICAL HISTORY: pain with EOM, swelling R eye FINDINGS: No fracture is identified. The globes are intact. The extraocular muscles are normal. There is enlargement of the right lacrimal gland with adjacent soft tissue swelling, inflammatory change is favored. There is mild mucosal thickening of the left maxillary sinus. No definite fluid collection is seen to suggest an abscess. IMPRESSION: Enlargement of the right lacrimal gland with adjacent soft tissue swelling, favor inflammatory. Reviewed, Interpreted and Dictated by Lyndon Brand III, MD Transcribed by Flaquita Davis Authenticated and [facility]
[2024-03-10] MEDS: TETRACAINE 0.5% OPTH SOL 15ML OP (10:10)
[2024-03-10] MEDS: FLUORESCEIN SODIUM 1MG STRIP 1 MG OP (10:10)
[2024-03-10 10:30] LABS: Basophils # 0.1 K/mm3 (0-0.2); Basophils % 0.9 % (0.1-2.0); Eosinophils # 0.5 K/mm3 (0.0-0.4); Eosinophils % 4.7 % (0.1-12.0); Hemoglobin 14.4 g/dL (14.1-18.0); Lymphocytes % 18.6 % (10-50); Mean Corpuscular HGB Conc 34.4 g/dL (31.8-35.4); Mean Corpuscular Hemoglobin 31.9 pg (27.0-31.2); Mean Corpuscular Volume 92.9 fl (80-94); Mean Platelet Volume 8.8 fl (7.4-10.4); Monocytes # 0.5 K/mm3 (0.1-1.0); Monocytes % 5.1 % (1.7-9.3); Neutrophils # 7.6 K/mm3 (1.8-7.8); Neutrophils % 70.7 % (37.0-80.0); Platelet Count 232 K/mm3 (142-424); Red Blood Count 4.52 M/mm3 (4.60-6.20); Red Cell Distribution Width 14.2 % (11.5-17.5); White Blood Count 10.7 K/mm3 (4.8-10.8)
[2024-03-10] MEDS: KETOROLAC 30MG/ML VIAL 15 MG IV (10:35)
[2024-03-10] MEDS: ACETAMINOPHEN 1,000MG/100ML VIAL 1000 MG IV (10:35)
[2024-03-10 10:38] LABS: Albumin Level 4.1 g/dl (3.5-5.0); Chloride 106 mmol/L (98-107); Sodium 140 mmol/L (136-145)
[2024-03-10 10:39] LABS: Potassium 4.3 mmoL/L (3.5-5.1)
[2024-03-10 10:41] LABS: Alanine Aminotransferase 26 U/L (12-78); Albumin/Globulin Ratio 1.6 (1.1-1.8); Alkaline Phosphatase 78 U/L (38-126); Anion Gap 7.3 mEq/L (5-15); Aspartate Amino Transferase 34 U/L (17-59); Bilirubin,Total 0.5 mg/dl (0.2-1.3); Blood Urea Nitrogen 10 mg/dl (9-20); Carbon Dioxide 31 mmol/L (22.0-30.0); Creatinine Clearance Estimated 104 mL/min (50-200); Estimated Glomerular Filt Rate 88 ml/min (>60); GFR (African American) 106 ML/MIN (>60); Globulin 2.5 g/dL (1.3-3.2); Total Protein,Serum 6.6 g/dl (6.3-8.2)
[2024-03-10 10:42] LABS: Calcium 8.7 mg/dl (8.4-10.2); Glucose 106 mg/dl (74-100)
--- NOTE | 2024-03-10 10:43 | PC.NURSE ---
Called pharmacy for frank
[2024-03-10] MEDS: SODIUM CHLORIDE 0.9% 10ML SYR (RAD ONLY) 10 ML IV (10:57)
[2024-03-10] MEDS: IOPAMIDOL-370 (76%);100ML BOTTLE 100 ML IV (10:57)
[2024-03-10] MEDS: AMPICILLIN/SULBACTAM 3 GM in 0.9 % SODIUM CHLORIDE 100 ML IV (11:07)
--- NOTE | 2024-03-10 11:08 | ED_ITS ---
Discharge Plan Disposition Patient Disposition: Home, Self-Care Prescriptions Prescriptions: New amoxicillin-pot clavulanate 875-125 mg tablet 1 tab PO BID 7 Days Qty: 14 0RF No Action azithromycin 250 MG tablet 250 mg PO DIRECTED Qty: 6 0RF Rx Instructions: Take two (2) tablets on day #1, then one (1) tablet day #2 thru #5 methylprednisolone 4 MG tablet 4 mg PO DIRECTED Qty: 21 0RF Rx Instructions: Take as directed on package instructions benzonatate 100 MG capsule 100 mg PO Q8HP PRN (Reason: Cough) Qty: 15 0RF ondansetron 4 MG tablet,disintegrating 4 mg PO TIDP PRN (Reason: Nausea) Qty: 6 0RF prednisone 10 mg tablet 10 mg PO DIRECTED Qty: 30 0RF Rx Instructions: see taper instructions Take 40 mg daily for 4 days, THEN take 20 mg daily for 4 days, THEN take 10 mg daily for 4 days, THEN take 10 mg every other day for 2 doses. Referrals Follow up/Referrals: Alan Thomas [Primary Care Provider] - See instructions Activity Restrictions/Add. Instructions Additional Instructions/Restrictions: Call your family doctor to establish care for this visit to the emergency department and schedule follow-up within 48 hours to ensure improvement. If you have any worsening of your condition or any other concerning signs or symptoms, return to the emergency department or your primary care doctor for further evaluation. Drop 3 times daily for 7 days, Augmentin twice daily for 7 days. Clinical Impressions Clinical Impression: Periorbital cellulitis of right eye, Conjunctivitis Print Language Print Language: Icelandic Discharge ED Provider: Tao Padilla General Adult HPI General Chief complaint: Eye Problems Stated complaint: redness, swelling of R eye Time Seen by Provider: 03/10/24 09:49 Mode of Arrival: Family Vehicle Source of Information: Patient Limitations: No Limitations Description of Symptoms (Recalled from ER Triage Doc. by RN): Pt presents to ER with concerns for bilat eye pain, redness, itching, and scleral edema R > L. States the redness and pain began yesterday when he woke up and it progressively has worsened. Denies any fever, chills, or n/v/d. Pt also reports grn drainage from eyes and blurry vision. History of Present Illness HPI narrative: Please note that above description of symptoms, in this electronic medical record under categorization of recalled from ER triage doctor by RN are reflective of an initial nursing assessment, however, is not reflective of my full history and physical exam that was personally taken and clarified. Consequentially, this preceding description of symptoms, which may include the patient's categorized chief complaint in the EMR, do not reflect my personal clinical impression, and the ultimate description of history of present illness and patient stated complaints should be deferred to this section of the note. Unless stated otherwise or congruent with this section of the note, additional signs, symptoms, or incongruence should be interpreted as inaccurate with my clinical impression. Related Data Previous Rx's ?Medication ?Instructions ?Recorded azithromycin 250 mg tablet 250 mg PO DIRECTED #6 tabs 08/19/21 benzonatate 100 mg capsule 100 mg PO Q8HP PRN Cough #15 caps 08/19/21 methylprednisolone 4 mg tablet 4 mg PO DIRECTED #21 tabs 08/19/21 ondansetron 4 mg disintegrating 4 mg PO TIDP PRN Nausea #6 tabs 08/19/21 tablet prednisone 10 mg tablet 10 mg PO DIRECTED #30 tabs 09/03/23 amoxicillin 875 mg-potassium 1 tab PO BID 7 days #14 tabs 03/10/24 clavulanate 125 mg tablet Allergies Allergy/AdvReac Type Severity Reaction Status Date / Time No Known Allergies Allergy Verified 08/06/19 21:11 [facility] Disclaimer: The information contained in this section may have been updated after the patient was seen, as this information can be updated by other users. Social History Smoking Status: Current every day smoker tobacco type: cigarettes packs per day: 1 alcohol intake: never current occupational status: employed Travel in the last 8 weeks: None housing: house ROS Obtained: Yes All systems reviewed & no additional complaints except as documented Physical Exam General General appearance: alert Head Head exam: atraumatic and normocephalic Eye Eye exam: Present PERRL, EOMI and other (Pain with EOMs right. Conjunctival injection and chemosis right eye. Bilateral periorbital swelling, right greater than left. No evidence of hyphema, proptosis, entrapment, conjunctival hemorrhage, pupillary changes, or otherwise irregular ocular findings) Neck Neck exam: Present normal inspection, full ROM and trachea midline; Absent meningismus or lymphadenopathy Respiratory Respiratory exam: Absent respiratory distress, wheezes, stridor, accessory muscle use or prolonged expiratory phase Cardiovascular Cardiovascular exam: Present other (Pulses equal symmetric in upper and lower extremities) Abdominal Exam Abdominal exam: Present soft; Absent distention, tenderness or pulsatile mass Extremities Exam Extremities exam: Absent edema Neurological Exam Neurological exam: Present alert, oriented X3 and CN II-XII intact; Absent motor sensory deficit Skin Skin exam: Present warm and dry; Absent diaphoresis or erythema Medical Decision Making Medical Records Medical records reviewed: Yes I reviewed the patient's medical records. Elio Inquiry Pt receiving controlled substance: No Elio was queried for this patient: No Vital Signs: 03/10/24 09:24 03/10/24 09:29 03/10/24 10:00 Temperature 98.8 F Temperature Source Oral Pulse Rate 67 61 Pulse Rate [Right] 75 Respiratory Rate 17 Blood Pressure 132/78 136/84 Blood Pressure [Right Arm] 132/78 Blood Pressure Mean [Right Arm] 96 Blood Pressure Source [Right Arm] Automatic Cuff 02 Sat by Pulse Oximetry 98 96 97 Oxygen Delivery Method Room Air 03/10/24 10:13 03/10/24 10:30 Temperature Temperature Source Pulse Rate 81 68 Pulse Rate [Right] Respiratory Rate Blood Pressure 162/90 H 139/90 Blood Pressure [Right Arm] Blood Pressure Mean [Right Arm] Blood Pressure Source [Right Arm] 02 Sat by Pulse Oximetry 98 99 Oxygen Delivery Method Lab Data Lab Results 03/10/24 10:20: WBC 10.7, RBC 4.52 L, Hgb 14.4, Hct 42.0, MCV 92.9, MCH 31.9 H, MCHC 34.4, RDW 14.2, Plt Count 232, MPV 8.8, Neut % (Auto) 70.7, Lymph % (Auto) 18.6, Elbert % (Auto) 5.1, Eos % (Auto) 4.7, Baso % (Auto) 0.9, Neut # (Auto) 7.6, Lymph # (Auto) 2.0, Elbert # (Auto) 0.5, Eos # (Auto) 0.5 H, Baso # (Auto) 0.1, Sodium 140, Potassium 4.3, Chloride 106, Carbon Dioxide 31 H, Anion Gap 7.3, BUN 10, Creatinine 0.90, Estimated Creat Clear 104, Estimated GFR 88, Est GFR ( Amer) 106, Glucose 106 H, Lactate 1.0, Calcium 8.7, Total Bilirubin 0.5, AST 34, ALT 26, Alkaline Phosphatase 78, Total Protein 6.6, Albumin 4.1, Globulin 2.5, Albumin/Globulin Ratio 1.6 03/10/24 10:20 03/10/24 10:20 Orders (Tests/Meds): ED MEDICATIONS Generic Name Dose Route Start Last Admin Trade Name Anupama PRN Reason Stop Dose Admin Sodium Chloride 10 ml 03/10/24 10:24 Sodium Chloride 0.9% 10ml Flush Syringe IV 04/09/24 10:23 NEEDED PRN Maintain IV Site Discontinued Medications Generic Name Dose Route Start Last Admin Trade Name Fremimi PRN Reason Stop Dose Admin Acetaminophen 1,000 mg 03/10/24 10:08 03/10/24 10:35 Acetaminophen 1,000mg/100ml Vial IV 03/10/24 10:09 1,000 mg ONCE ONE Administration Fluorescein Sodium 1 mg 03/10/24 10:10 Fluorescein Sodium 1mg Strip OP 03/10/24 10:11 ONCE ONE Ampicillin Sodium/Sulbactam 100 mls @ 200 mls/hr 03/10/24 10:08 03/10/24 11:07 Sodium 3 gm/ Sodium Chloride IV 03/10/24 10:09 200 mls/hr ONCE ONE Administration Iopamidol 100 ml 03/10/24 10:57 03/10/24 10:57 Iopamidol-370 (76%);100ml Bottle IV 03/10/24 10:58 100 ml ONCE ONE Administration Ketorolac Tromethamine 15 mg 03/10/24 10:08 03/10/24 10:35 Ketorolac 30mg/Ml Vial IV 03/10/24 10:09 15 mg ONCE ONE Administration Sodium Chloride 10 ml 03/10/24 10:57 03/10/24 10:57 Sodium Chloride 0.9% 10ml Syr (Rad Only) IV 03/10/24 10:58 10 ml ONCE ONE Administration Tetracaine HCl 0 ml 03/10/24 10:10 Tetracaine 0.5% Opth Ebony 15ml OP 03/10/24 10:11 ONCE ONE ORDERS Category Date Time Status CT orbit BI w con Stat Cat Scan 08/08/24 10:08 Taken CBC w/Auto Diff [Complete Blood Count Auto Diff] Stat Lab 03/10/24 10:20 Completed CMP [Comprehensive Metabolic Panel] Stat Lab 03/10/24 10:20 Completed Lactic Acid Stat Lab 03/10/24 10:20 Completed Blood Culture Stat Micro 03/10/24 10:23 Received Medical Decision Narrative: 53-year-old male history of hypertension, COPD still smoking not on home oxygen presenting with eye complaints. Patient states that since yesterday, 03/09, patient started having swelling and tenderness in the right eye. States that his vision is intermittently blurry. Red, swollen, no photophobia. No trauma to the eye. 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 States he is now having symptoms in his left eye. No fevers or chills, nausea or vomiting, lymphadenopathy, pain with range of motion of neck, or any other concerns. History was obtained via conversation with patient. On arrival, patient hemodynamically stable, alert, oriented x4, appropriate, GCS 15, moving all extremities spontaneously, pupils equal and reactive to light. Full physical exam performed and significant for Pain with EOMs right. Conjunctival injection and chemosis right eye. Bilateral periorbital swelling, right greater than left. No evidence of hyphema, proptosis, entrapment, conjunctival hemorrhage, pupillary changes, or otherwise irregular ocular findings. Visual acuity 20/40 in the left, 20/50 in the right, 20/25 bilaterally. Fluorescein exam demonstrated small foreign body around the limbus at the 9 o'clock position right eye. Differential includes foreign body, viral, bacterial conjunctivitis, periorbital cellulitis, orbital cellulitis, among others. Patient placed on continuous cardiac monitoring and continuous pulse ox with initial blood pressure 132/78, heart rate 75, saturation 98% on room air. Patient was given topical tetracaine, fluorescein, Toradol, acetaminophen, for symptomatic management and correction of underlying abnormalities. Also given empiric dose of Unasyn. Workup independently interpreted and significant for no leukocytosis, normal lactic acid. Chemistry nonactionable. On independent interpretation of imaging, soft tissue edema external to orbit, no evidence of orbital cellulitis. See radiology read for full review of final results. On reevaluation, patient resting comfortably in bed. Polytrim drops administered in bilateral eyes, given symptoms now occurring in the left eye as well. Patient given initial dose of Unasyn here, Augmentin sent to pharmacy. Given history and physical exam, this most likely represents preseptal cellulitis, conjunctivitis, as well as small foreign body. Foreign body removed without issue after tetracaine numbing. Because patient at baseline without signs or symptoms of clinical decompensation, deemed appropriate for discharge. Results were relayed to patient who voiced understanding and were agreeable to outpatient management and follow up. I discussed my clinical impression with patient and answered all questions. At this time, the evidence for any other entities in the differential is insufficient to warrant any further testing or ED observation. This was explained as well. Advisory was given that persistent or worsening symptoms require further evaluation. I confirmed the understanding of this discussion. 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 Electronic vp communications of the spoken language may permit errors. Although I have reviewed the note, some errors may still exist. Procedures Eye Exam/FB Removal Location: eye (R) Topical anesthetic used: tetracaine Fluorescein Stick(s) used: Yes Time Out performed: No Procedure performed under: direct visualization with magnification Foreign body: wood Evidence of corneal penetration: No Technique: cotton tip swab Eye irrigated w/saline (#ccs): 2 Patient tolerated procedure: well Critical Care Critical Care Time Critical Care Time: No
--- NOTE | 2024-03-10 12:21 | PC.NURSE ---
called radiology to check on status of CT results. Nida reports there is a preliminary report and she will fax to us. This was givent o Dr. Padilla
[2024-03-10] MEDS: NEOMYCIN-POLYMY-GRAM OPHTH SOLN 10ML BOTTLE OP (13:05)
== END 2024-03-10 12:51 | disposition home or self-care (01) ==
PROVIDERS: Emergency Provider Emergency Medicine; PCP Pediatrics
DX: L03.213 Periorbital cellulitis (principal); H10.31 Unspecified acute conjunctivitis, right eye; F17.210 Nicotine dependence, cigarettes, uncomplicated; W45.8XXA Other foreign body or object entering through skin, initial encounter; T15.91XA Foreign body on external eye, part unspecified, right eye, initial encounter
CPT/HCPCS: 65220; 70481; 80053; 83605; 85025; 87040; 96374; 96375; 99284; J0131; J0295; J1885; Q9967

== ENCOUNTER 2024-11-25 18:05 | Emergency (ER) | payer MEDICARE, SELFPAY ==
[2024-11-25] VITALS (7 sets, daily range): BP systolic 122–156; BP diastolic 75–92; PULSE 48–90; RESP 11–19; TEMP 36.8; O2SAT 98–100; BMI 25.7
--- NOTE | 2024-11-25 18:01 | ECG_ITS ---
APPROVED REPORT Exam: Resting ECG HR:94 bpm ECG Measurements Heart Rate 94 AXES AZ 125 P 42 QRSd 96 QRS 45 QT 361 T 35 QTc 413 Conclusion SINUS RHYTHM NORMAL ECG Electronically signed by : ONEIL DEAN, 11/25/2024 23:31:48
--- NOTE | 2024-11-25 18:18 | XR_ITS ---
PROCEDURE INFORMATION: Exam: XR Chest Exam date and time: 11/25/2024 6:22 PM Age: 54 years old Clinical indication: Pain; Chest pressure; Additional info: Chest pain TECHNIQUE: Imaging protocol: Radiologic exam of the chest. Views: 1 view. COMPARISON: CR XR CHEST PORTABLE 04/03/2022 6:17 PM FINDINGS: Lungs: Unremarkable. No consolidation. Pleural spaces: Unremarkable. No pleural effusion. No pneumothorax. Heart/Mediastinum: Unremarkable. No cardiomegaly. Bones/joints: Unremarkable. IMPRESSION: No acute findings.
--- NOTE | 2024-11-25 18:22 | PC.NURSE ---
XR AT BEDSIDE
[2024-11-25 18:25] LABS: Albumin Level 4.5 g/dl (3.5-5.0); Chloride 103 mmol/L (98-107); Potassium 4.3 mmoL/L (3.5-5.1); Sodium 140 mmol/L (136-145)
[2024-11-25 18:28] LABS: Alanine Aminotransferase 27 U/L (12-78); Albumin/Globulin Ratio 1.5 (1.1-1.8); Alkaline Phosphatase 75 U/L (38-126); Anion Gap 10.3 mEq/L (5-15); Aspartate Amino Transferase 42 U/L (17-59); Bilirubin,Total 0.5 mg/dl (0.2-1.3); Blood Urea Nitrogen 12 mg/dl (9-20); Carbon Dioxide 31 mmol/L (22.0-30.0); Creatinine Clearance Estimated 80 mL/min (50-200); Estimated Glomerular Filt Rate 69 ml/min (>60); GFR (African American) 84 ML/MIN (>60); Total Protein,Serum 7.5 g/dl (6.3-8.2)
[2024-11-25 18:29] LABS: Calcium 9.2 mg/dl (8.4-10.2); Glucose 117 mg/dl (74-100)
[2024-11-25 18:33] LABS: Basophils # 0.1 K/mm3 (0-0.2); Eosinophils # 0.7 Kmm3 (0.0-0.4); Hematocrit 43.5 % (42.0-52.0); Lymphocytes # 3.4 K/mm3 (0.7-4.5); Mean Corpuscular HGB Conc 34.5 g/dL (31.8-35.4); Mean Corpuscular Hemoglobin 30.5 pg (27.0-31.2); Mean Corpuscular Volume 88.4 fl (80-94); Mean Platelet Volume 11.1 fl (7.4-10.4); Monocytes # 0.6 K/mm3 (0.1-1.0); Monocytes % 6.5 % (1.7-9.3); Neutrophils # 4.2 K/mm3 (1.8-7.8); Neutrophils % 46.2 % (37.0-80.0); Nucleated Red Blood Cells # 0 10^3/uL; Nucleated Red Blood Cells % 0 %; Platelet Count 246 K/mm3 (142-424); Red Blood Count 4.92 M/mm3 (4.60-6.20); Red Cell Distribution Width 13.5 % (11.5-17.5); Red Cell Distribution Width-SD 43.7 fL
--- NOTE | 2024-11-25 18:41 | CT_ITS ---
PROCEDURE INFORMATION: Exam: CTA Neck With Contrast Exam date and time: 11/25/2024 7:04 PM Age: 54 years old Clinical indication: Other: Vertigo; Additional info: Vertigo, presyncope TECHNIQUE: Imaging protocol: Computed tomographic angiography of the neck with contrast. Exam focused on the cervical segments of the vasculature. 3D rendering (Not supervised by radiologist): MIP and/or 3D reconstructed images were created by the technologist. Radiation optimization: All CT scans at this facility use at least one of these dose optimization techniques: automated exposure control; mA and/or kV adjustment per patient size (includes targeted exams where dose is matched to clinical indication); or iterative reconstruction. Contrast material: ISOVUE; Contrast volume: 80 ml; Contrast route: INTRAVENOUS (IV); COMPARISON: CT HEAD/BRAIN WO CON 11/25/2024 7:00 PM FINDINGS: Right common carotid artery: No stenosis. No dissection or occlusion. Right internal carotid artery: No stenosis of the extracranial segment. No dissection or occlusion. Right external carotid artery: No occlusion or stenosis of the origin. Left common carotid artery: No stenosis. No dissection or occlusion. Left internal carotid artery: No stenosis of the extracranial segment. No dissection or occlusion. Left external carotid artery: No occlusion or stenosis of the origin. Right vertebral artery: No stenosis. No dissection or occlusion. Left vertebral artery: No stenosis. No dissection or occlusion. Soft tissues: Normal. No significant soft tissue swelling. Bones/joints: No acute fracture. IMPRESSION: No stenosis or occlusion. REFERENCES: NASCET CRITERIA. The degree of stenosis in the cervical segment of the internal carotid artery is based on NASCET criteria. Normal is no stenosis. Mild is less than 50% stenosis. Moderate is 50-69% stenosis. Severe is 70% to 99% stenosis. Total occlusion is no detectable patent lumen.
--- NOTE | 2024-11-25 18:41 | CT_ITS ---
PROCEDURE INFORMATION: Exam: CT Head Without Contrast Exam date and time: 11/25/2024 7:00 PM Age: 54 years old Clinical indication: Other: Vertigo; Additional info: Vertigo, presyncope TECHNIQUE: Imaging protocol: Computed tomography of the head without contrast. Radiation optimization: All CT scans at this facility use at least one of these dose optimization techniques: automated exposure control; mA and/or kV adjustment per patient size (includes targeted exams where dose is matched to clinical indication); or iterative reconstruction. COMPARISON: CT ORBIT BI W CON 03/10/2024 10:57 AM FINDINGS: Brain: Normal. No hemorrhage. Unremarkable white matter. No mass effect. Cerebral ventricles: No ventriculomegaly. Paranasal sinuses: Visualized sinuses are unremarkable. No fluid levels. Mastoid air cells: Visualized mastoid air cells are well aerated. Bones: Unremarkable. No acute fracture. Soft tissues: Stable probable complex sebaceous cyst in the right superior parietal region 1.6 cm IMPRESSION: No acute intracranial abnormality.
--- NOTE | 2024-11-25 18:41 | CT_ITS ---
PROCEDURE INFORMATION: Exam: CTA Head With Contrast, Arteriography Exam date and time: 11/25/2024 7:04 PM Age: 54 years old Clinical indication: Vertigo; Additional info: Vertigo, presyncope TECHNIQUE: Imaging protocol: Computed tomographic angiography of the head with contrast. Exam focused on the arteries. 3D rendering (Not supervised by radiologist): MIP and/or 3D reconstructed images were created by the technologist. Radiation optimization: All CT scans at this facility use at least one of these dose optimization techniques: automated exposure control; mA and/or kV adjustment per patient size (includes targeted exams where dose is matched to clinical indication); or iterative reconstruction. Contrast material: ISOVUE; Contrast volume: 80 ml; Contrast route: INTRAVENOUS (IV); COMPARISON: CT HEAD/BRAIN WO CON 11/25/2024 7:00 PM FINDINGS: ANTERIOR CIRCULATION: Right internal carotid artery: Intracranial segment is patent with no significant stenosis. No aneurysm. Right middle cerebral artery: No occlusion or significant stenosis. No aneurysm. Right anterior cerebral artery: No occlusion or significant stenosis. No aneurysm. Left internal carotid artery: Intracranial segment is patent with no significant stenosis. No aneurysm. Left middle cerebral artery: No occlusion or significant stenosis. No aneurysm. Left anterior cerebral artery: No occlusion or significant stenosis. No aneurysm. POSTERIOR CIRCULATION: Right vertebral artery: No occlusion or significant stenosis. No aneurysm. Left vertebral artery: No occlusion or significant stenosis. No aneurysm. Basilar artery: No occlusion or significant stenosis. No aneurysm. Right posterior cerebral artery: No occlusion or significant stenosis. No aneurysm. Left posterior cerebral artery: No occlusion or significant stenosis. No aneurysm. Brain: No definite mass, mass effect, or midline shift. Cerebral ventricles: No ventriculomegaly. Bones/joints: Unremarkable. No acute fracture. Soft tissues: Unremarkable. IMPRESSION: No large vessel stenosis or occlusion.
--- NOTE | 2024-11-25 18:41 | CT_ITS ---
PROCEDURE INFORMATION: Exam: CTA Chest With Contrast Exam date and time: 11/25/2024 7:07 PM Age: 54 years old Clinical indication: Other: Veritgo; Additional info: Vertigo, presyncope TECHNIQUE: Imaging protocol: Computed tomographic angiography of the chest with contrast. Exam focused on the arteries. 3D rendering (Not supervised by radiologist): MIP and/or 3D reconstructed images were created by the technologist. Radiation optimization: All CT scans at this facility use at least one of these dose optimization techniques: automated exposure control; mA and/or kV adjustment per patient size (includes targeted exams where dose is matched to clinical indication); or iterative reconstruction. Contrast material: ISOVUE; Contrast volume: 70 ml; Contrast route: INTRAVENOUS (IV); COMPARISON: CR XR CHEST PORTABLE 11/25/2024 6:22 PM FINDINGS: Pulmonary arteries: Normal. No pulmonary emboli. Aorta: Unremarkable. No aortic aneurysm. No aortic dissection. Lungs: Unremarkable. No consolidation. No masses. Pleural spaces: Unremarkable. No pneumothorax. No pleural effusion. Heart: Unremarkable. No cardiomegaly. No pericardial effusion. Lymph nodes: Unremarkable. No enlarged lymph nodes. Bones/joints: Unremarkable. No acute fracture. Soft tissues: Unremarkable. IMPRESSION: No acute findings.
[2024-11-25 18:43] LABS: Troponin I < 0.01 ng/ml (0.00-0.034)
[2024-11-25] MEDS: ASPIRIN 81MG CHEWABLE TABLET 324 MG PO (18:48)
[2024-11-25] MEDS: LACTATED RINGERS 1000ML 1,000 ML 999 ML IV (18:48)
[2024-11-25] MEDS: MECLIZINE 25MG TABLET 25 MG PO (18:49)
--- NOTE | 2024-11-25 18:51 | PC.NURSE ---
PT TO XR
--- NOTE | 2024-11-25 19:04 | [facility].EDCP ---
Discharge Plan Disposition Patient Disposition: Home, Self-Care Condition: Good Prescriptions Prescriptions: New meclizine 25 mg tablet 25 mg PO QID PRN (Reason: dizziness) Qty: 20 0RF cetirizine [Zyrtec] 10 mg tablet 10 mg PO DAILY Qty: 30 0RF prednisone 20 mg tablet 40 mg PO DAILY 3 Days Qty: 6 0RF fluticasone propionate [Flonase Allergy Relief] 50 mcg/actuation spray,suspension 1 spray intranasal DAILY Qty: 16 0RF Rx Instructions: administer into each nostril No Action hydroxyzine pamoate 25 mg capsule 25 mg PO HS Patient Comments: TAKE 1 TO 2 CAPSULES BY MOUTH TWICE DAILY NEEDED FOR ANXIETY RESTLESSNESS Referrals Follow up/Referrals: Li Wahl APRN [Nurse Practitioner] - See instructions Kee Hernandez MD [Staff Physician] - See instructions Uli Villanueva [Primary Care Provider] - See instructions Activity Restrictions/Add. Instructions Additional Instructions/Restrictions: You were evaluated in the emergency department today. Please pick pulling machine tender your prescriptions at the pharmacy and take them as prescribed. Please follow-up very closely with your primary care provider as well as with cardiology given your chest pain. Follow-up with ENT given your ear issues and persistent vertigo. Return to the emergency department for new or worsening symptoms. Clinical Impressions Clinical Impression: Chest pain, Vertigo Stand Alone Forms Stand Alone Forms: Work/School Release Instructions Patient Instructions: DI for Vertigo, DI for Atypical Chest Pain Print Language Print Language: Kinyarwanda Discharge ED Provider: Paula Suero HPI General Chief Complaint: Chest Pain Stated Complaint: chest pain Time Seen by Provider: 11/25/24 18:19 Mode of Arrival: Ambulatory Source of Information: Patient Description of Symptoms (Recalled from ER Triage Doc. by RN): PT REPORTS CHEST PAIN X 2 WEEKS, CURRENTLY RATES PAIN 0/10. PT REPORTS DIZZINESS THAT STARTED ON THURSDAY, WORSE IF PT IS LYING DOWN History of Present Illness HPI narrative: This patient is a 54-year-old male with a history of tobacco dependence and anxiety presenting to the emergency department for evaluation with concern for chest pain and dizziness. Patient states that he has been having intermittent episodes of dizziness and chest pain. He states that the chest pain has been intermittent for a while now, left-sided and nonradiating. He has had intermittent dizziness since Thursday that is worse if he lies down flat. He states that it is a room spinning type situation but resolves when he sits up. He thought he might be an inner ear issue causing vertigo because he has some popping in his right ear. No other concerns or complaints noted. No traumatic injury noted. No new headaches, visual disturbance, numbness, tingling, unilateral weakness, abdominal pain, nausea, vomiting return to the bowel movements, or other concerns. Related Data Home Medications ?Medication ?Instructions ?Recorded ?Confirmed hydroxyzine pamoate 25 mg capsule 25 mg PO HS 11/25/24 11/25/24 Previous Rx's ?Medication ?Instructions ?Recorded cetirizine 10 mg tablet (Zyrtec) 10 mg PO DAILY #30 tabs 11/25/24 fluticasone propionate 50 1 spray intranasal DAILY #16 grams 11/25/24 mcg/actuation nasal spray,suspension (Flonase Allergy Relief) meclizine 25 mg tablet 25 mg PO QID PRN dizziness #20 tabs 11/25/24 prednisone 20 mg tablet 40 mg (2 x 20 mg) PO DAILY 3 days 11/25/24 #6 tabs Allergies Allergy/AdvReac Type Severity Reaction Status Date / Time No Known Allergies Allergy Verified 08/06/19 21:11 [facility] Disclaimer: The information contained in this section may have been updated after the patient was seen, as this information can be updated by other users. Social History Smoking Status: Current every day smoker tobacco type: cigarettes packs per day: 1 alcohol intake: never current occupational status: employed Travel in the last 8 weeks: None housing: house Have you lived/traveled outside [place] in past 30 days?: No Contact w/someone who lives/traveled outside [place] past 30 days?: No Exposure to someone with infectious disease in past 14 days?: No Do you have a fever (greater than 100.4 F or 38 C)?: No Have you tested positive for COVID-19: No Exposed to someone with COVID-19 in past 14 days?: No Do you have a sore throat?: No Do you have a cough?: No Do you have any weakness?: No Do you have any diarrhea?: No Are you experiencing any unusual bleeding?: No Do you have any muscle aches/pain?: No Do you have any abdominal pain?: No Are you experiencing loss of taste or smell?: No Other Medical History Have you received the Flu Vaccine for this season: No Have you received the Pneumonia Vaccine: No ROS Obtained: Yes All systems reviewed & no additional complaints except as documented Physical Exam General General appearance: alert and in no apparent distress Head Head exam: atraumatic and normocephalic Eye Eye exam: Present normal appearance, PERRL and EOMI ENT ENT exam: Present normal exam, normal oropharynx, mucous membranes moist and normal external ear exam Neck Neck exam: Present normal inspection, full ROM and trachea midline; Absent tenderness Chest Chest inspection: Present normal inspection and symmetric chest wall rise; Absent tenderness Respiratory Respiratory exam: Present normal lung sounds bilaterally; Absent respiratory distress, wheezes, stridor or accessory muscle use Cardiovascular Cardiovascular exam: Present regular rate and normal rhythm Abdominal Exam Abdominal exam: Present soft; Absent distention, tenderness or guarding Extremities Exam Extremities exam: Present normal inspection, full ROM and normal capillary refill; Absent tenderness or edema Back Exam Back exam: Present normal inspection and full ROM; Absent tenderness Neurological Exam Neurological exam: Present alert, oriented X3, CN II-XII intact and normal gait; Absent motor sensory deficit Psychiatric Psychiatric exam: Present normal affect and normal mood Skin Skin exam: Present warm and dry HEART Score HEART Score HEART Score assessment performed?: Yes History (anamnesis): Slightly suspicious ECG: Normal Age: 45-65 years Risk factors: 1-2 risk factors Troponin: </= normal limit HEART Score: 2 Critical Care Critical Care Time Critical Care Time: No Medical Decision Making Elio Inquiry Pt receiving controlled substance: No Vital Signs Vital Signs: 11/25/24 18:12 11/25/24 19:30 11/25/24 20:00 Temperature 98.2 F Temperature Source Oral Pulse Rate 70 53 L Pulse Rate [Apical] 90 Respiratory Rate 18 12 15 Blood Pressure 130/75 132/84 Blood Pressure [Left Arm] 156/86 H Blood Pressure Mean 108 Blood Pressure Mean [Left Arm] 109 Blood Pressure Source Blood Pressure Source [Left Arm] Automatic Cuff Blood Pressure Position Blood Pressure Position [Left Arm] Sitting 02 Sat by Pulse Oximetry 98 100 99 Oxygen Delivery Method Room Air Room Air 11/25/24 20:30 11/25/24 21:00 11/25/24 21:30 Temperature Temperature Source Pulse Rate 55 L 50 L 48 L Pulse Rate [Apical] Respiratory Rate 19 11 L 12 Blood Pressure 122/82 134/80 133/83 Blood Pressure [Left Arm] Blood Pressure Mean 102 108 98 Blood Pressure Mean [Left Arm] Blood Pressure Source Blood Pressure Source [Left Arm] Blood Pressure Position Blood Pressure Position [Left Arm] 02 Sat by Pulse Oximetry 100 100 100 Oxygen Delivery Method Room Air Room Air Room Air 11/25/24 22:27 Temperature 98.2 F Temperature Source Oral Pulse Rate 63 Pulse Rate [Apical] Respiratory Rate 18 Blood Pressure 131/92 H Blood Pressure [Left Arm] Blood Pressure Mean Blood Pressure Mean [Left Arm] Blood Pressure Source Automatic Cuff Blood Pressure Source [Left Arm] Blood Pressure Position Sitting Blood Pressure Position [Left Arm] 02 Sat by Pulse Oximetry Oxygen Delivery Method Room Air Lab Data Labs: Lab Results 11/25/24 18:05: HCV Ab ARACELIS w/Rflx PCR Qn Negative, HIV Ag/Ab Combo Qual Negative 11/25/24 21:19: Troponin I < 0.01 11/25/24 : WBC 9.0, RBC 4.92, Hgb 15.0, Hct 43.5, MCV 88.4, MCH 30.5, MCHC 34.5, RDW 13.5, Plt Count 246, MPV 11.1 H, Neut % (Auto) 46.2, Lymph % (Auto) 38.0, [place] % (Auto) 6.5, Eos % (Auto) 8.0, Baso % (Auto) 1.0, Neut # (Auto) 4.2, Lymph # (Auto) 3.4, [place] # (Auto) 0.6, Eos # (Auto) 0.7 H, Baso # (Auto) 0.1, Sodium 140, Potassium 4.3, Chloride 103, Carbon Dioxide 31 H, Anion Gap 10.3, BUN 12, Creatinine 1.10, Estimated Creat Clear 80, Estimated GFR 69, Est GFR ( Amer) 84, Glucose 117 H, Calcium 9.2, Total Bilirubin 0.5, AST 42, ALT 27, Alkaline Phosphatase 75, Troponin I < 0.01, Total Protein 7.5, Albumin 4.5, Globulin 3.0, Albumin/Globulin Ratio 1.5 11/25/24 Unknown 11/25/24 Unknown Response Orders (Tests/Meds): ED MEDICATIONS Discontinued Medications Generic Name Dose Route Start Last Admin Trade Name Anupama PRN Reason Stop Dose Admin Aspirin 324 mg 11/25/24 18:41 11/25/24 18:48 Aspirin 81mg Chewable Tablet PO 11/25/24 18:42 324 mg ONCE ONE Administration Diazepam 2 mg 11/25/24 21:42 11/25/24 22:12 Diazepam 2mg Tablet PO 11/25/24 21:43 2 mg ONCE ONE Administration Fluticasone Propionate 1 spray 11/25/24 21:42 11/25/24 22:10 Fluticasone Prop 50mcg Nasal [place] 16gm NS 11/25/24 21:43 1 spray ONCE ONE Administration Lactated Ringer's 1,000 mls @ 999 mls/hr 11/25/24 18:41 11/25/24 18:48 Lactated Ringer's 1000 Ml Bag IV 11/25/24 19:41 999 mls/hr .Q1H1M ONE Administration Iopamidol 150 ml 11/25/24 19:06 11/25/24 19:07 Iopamidol-370 (76%);100ml Bottle IV 11/25/24 19:07 150 ml ONCE ONE Administration Meclizine HCl 25 mg 11/25/24 18:41 11/25/24 18:49 Meclizine 25mg Tablet PO 11/25/24 18:42 25 mg ONCE ONE Administration Prednisone 40 mg 11/25/24 21:42 11/25/24 22:11 Prednisone 20mg Tab PO 11/25/24 21:43 40 mg ONCE ONE Administration Sodium Chloride 100 ml 11/25/24 19:06 11/25/24 19:07 0.9 % Sodium Chloride 50 Ml Vial IV 11/25/24 19:07 100 ml ONCE ONE Administration Sodium Chloride 10 ml 11/25/24 19:06 11/25/24 19:07 Sodium Chloride 0.9% 10ml Syr (Rad Only) IV 12/25/24 19:05 10 ml NEEDED PRN Administration Maintain IV Site ORDERS Category Date Time Status CT angio chest PE protocol Stat Cat Scan 11/25/24 18:[address] angio head Stat Cat Scan 11/25/24 18:[address] angio neck Stat Cat Scan 11/25/24 18:[address] head/brain wo con Stat Cat Scan 11/25/24 18:41 Completed XR chest portable Stat Exams 11/25/24 18:18 Completed Complete Blood Count Auto Diff Stat Lab 11/25/24 Completed Comprehensive Metabolic Panel Stat Lab 11/25/24 Completed HIV Combo Stat Lab 11/25/24 18:05 Completed Hepatitis C Ab Qual. W/ RFX Stat Lab 11/25/24 18:05 Completed Troponin I Q3H Lab 11/25/24 21:19 Completed Troponin I Stat Lab 11/25/24 Completed ECG Data Tracing #1: Attestation: I reviewed this ECG and interpreted as documented below: ECG Narrative: Normal sinus rhythm with ventricular rate of [address] changes concerning for ischemia. Normal intervals ECG initial impression date: 11/25/24 ECG initial impression time: 18:02 MDM Narrative Medical Decision Narrative: In summary, this patient is a 54-year-old male presenting to the Emergency Department for evaluation of dizziness, chest pains. Differential diagnoses considered include but are not limited to peripheral vertigo, BPPV, central vertigo, CVA, ACS, aortic dissection, vertebral artery dissection, ACS, PE. Ruling out the most morbid conditions drove assessment. It should be noted patient's history includes tobacco dependence which is not at goal therapy. This complicates all aspects of care by increasing patient's risk for morbidity. I reviewed patient's past medical records and noted previous ED evaluations for various complaint. On exam, the patient is lying in bed in no acute distress. He is neurologically intact without any focal deficit, cardiopulmonary exam is reassuring. Vitals are normal on cardiac telemetry. Based on reassuring history and exam, doubt central cause of vertigo, however he does have risk factors including tobacco dependence. Workup included CBC, CMP, troponin, CT head, CT angiogram head neck, CT angiogram chest, and EKG. EKG obtained is reassuring. Patient was given meclizine and a bolus of IV fluids as well as oral aspirin for symptomatic improvement. I independently interpreted CT scan prior to the radiologist read and noted no vessel occlusion or dissection, no intracranial hemorrhage or large space-occupying lesion. Please see their read for final interpretation. Labs were obtained that demonstrated reassuring CBC with no significant leukocytosis. Troponin initially is negative. Chemistry is reassuring with no significant electrolyte derangements. On reassessment, patient had some improvement after administration of meclizine but still complains of dizziness, especially with position changes. Exam remains reassuring for peripheral cause of vertigo as opposed to central. I also examined his ear that he complains of popping and he has a serous effusion of the right ear. He was given prednisone, Flonase, and small dose of Valium to help with the vertigo. At 1930, patient was placed in ED observation status pending second troponin to determine whether or not the patient would be appropriate for discharge versus admission. The patient was provided serial reevaluations and cardiac monitoring while awaiting ultimate disposition. Second troponin resulted and was negative. On multiple subsequent reassessments, the patient is resting comfortably with reassuring cardiopulmonary exam and normal vitals on cardiac telemetry. He remains neurologically intact. Given reassuring workup and exam, it is felt that the patient is appropriate for discharge at 2215. Total ED observation time was 2 hours 45 minutes. I had a [id number] visit with the patient when providing discharge instructions. The total time involved in discharging this patient was less than 30 minutes. Instructions for close follow-up with PCP, cardiology, and ENT were given based on his constellation of symptoms. He was also given prescriptions for prednisone, Flonase, Zyrtec.
[2024-11-25] MEDS: 0.9 % SODIUM CHLORIDE 50 ML VIAL 100 ML IV (19:07)
[2024-11-25] MEDS: SODIUM CHLORIDE 0.9% 10ML SYR (RAD ONLY) 10 ML IV (19:07)
[2024-11-25] MEDS: IOPAMIDOL-370 (76%);100ML BOTTLE 150 ML IV (19:07)
[2024-11-25 19:20] LABS: HIV Combo NEGATIVE (Negative)
[2024-11-25 19:27] LABS: Hepatitis C Ab Qual. W/ RFX NEGATIVE (Negative)
[2024-11-25 21:51] LABS: Troponin I < 0.01 ng/ml (0.00-0.034)
[2024-11-25] MEDS: FLUTICASONE PROP 50MCG NASAL SPRAY 16GM 1 SPRAY NS (22:10)
[2024-11-25] MEDS: predniSONE 20MG TAB 40 MG PO (22:11)
[2024-11-25] MEDS: diazePAM 2MG TABLET 2 MG PO (22:12)
== END 2024-11-25 22:28 | disposition home or self-care (01) ==
PROVIDERS: Emergency Provider Emergency Medicine; PCP Family Medicine
DX: R07.89 Other chest pain (principal); R42 Dizziness and giddiness; Z11.59 Encounter for screening for other viral diseases; Z11.4 Encounter for screening for human immunodeficiency virus [HIV]
CPT/HCPCS: 70450; 70496; 70498; 71045; 71275; 80053; 84484; 85025; 86803; 87389; 93005; 96360; 99285; J7120; Q9967